=== PATIENT | female | born 1955 | race African-American/Black ===

== ENCOUNTER 2020-01-08 09:45 | Emergency (ER) | payer OTHER ==
[~2020-01-08] VITALS: Ht 170.2 cm; Wt 100.0 kg
[~2020-01-08 09:45] MED LIST: GABA-529 PO; HYDR-3971 PO; LEVO125T4 PO; METF-960 PO
[2020-01-08 09:51] VITALS: BP 134/95
[2020-01-08] MEDS ORDERED: ERYTHROMYCIN 0.5% 3.5 GM TUBE OPHTHALMIC OINTMENT OD ONE (10:30)
== END 2020-01-08 11:25 | disposition home or self-care (01) ==
LOC: EMS 09:47
DX: H00.011 Hordeolum externum right upper eyelid (principal); I10 Essential (primary) hypertension; E11.9 Type 2 diabetes mellitus without complications; E03.9 Hypothyroidism, unspecified; F17.210 Nicotine dependence, cigarettes, uncomplicated; Z79.84 Long term (current) use of oral hypoglycemic drugs
CPT/HCPCS: 99406

== ENCOUNTER 2020-08-27 07:53 | Emergency (ER) | payer OTHER ==
[~2020-08-27] VITALS: Ht 170.2 cm; Wt 102.3 kg
[~2020-08-27 07:53] MED LIST changes: +GABA-1216 PO; -GABA-529 PO
[2020-08-27 08:01] VITALS: BP 113/76
[2020-08-27] MEDS ORDERED: ALBUTEROL SULFATE HFA 90 MCG/PUFF 8 GM INHALER IH ONE (08:30)
[2020-08-27 09:24] LABS: COVID AG,FIA SOURCE NASOPHARYNGEAL
== END 2020-08-27 09:19 | disposition home or self-care (01) ==
LOC: EMS 07:56
DX: R05 Cough (principal); I10 Essential (primary) hypertension; E03.9 Hypothyroidism, unspecified; E11.9 Type 2 diabetes mellitus without complications; F17.210 Nicotine dependence, cigarettes, uncomplicated; Z20.828 Contact with and (suspected) exposure to other viral communicable diseases; Z79.84 Long term (current) use of oral hypoglycemic drugs; Z79.899 Other long term (current) drug therapy
CPT/HCPCS: 71045; 82962; 87426; 94640; 99284; 99406; C9803; U0003; J3535

== ENCOUNTER 2020-10-30 03:00 | Emergency (ER) | payer OTHER ==
[~2020-10-30] VITALS: Ht 172.7 cm; Wt 95.5 kg
[2020-10-30 05:47] VITALS: BP 142/76
== END 2020-10-30 06:05 | disposition home or self-care (01) ==
LOC: EMS 03:02
DX: T16.2XXA Foreign body in left ear, initial encounter (principal); I10 Essential (primary) hypertension; E11.9 Type 2 diabetes mellitus without complications; F17.210 Nicotine dependence, cigarettes, uncomplicated; Z79.899 Other long term (current) drug therapy; W22.8XXA Striking against or struck by other objects, initial encounter; Y93.89 Activity, other specified; Y92.89 Other specified places as the place of occurrence of the external cause; Y99.8 Other external cause status
CPT/HCPCS: 69200

== ENCOUNTER 2021-07-05 08:30 | Emergency (ER) | payer OTHER ==
[~2021-07-05] VITALS: Ht 170.2 cm; Wt 104.5 kg
[~2021-07-05 08:30] MED LIST changes: -HYDR-3971 PO; +HYDR-4072 PO
[2021-07-05 08:51] VITALS: BP 128/78
== END 2021-07-05 09:40 | disposition home or self-care (01) ==
LOC: EMS 08:30
DX: U07.1 COVID-19 (principal); E11.9 Type 2 diabetes mellitus without complications; I10 Essential (primary) hypertension; F17.210 Nicotine dependence, cigarettes, uncomplicated; Z79.84 Long term (current) use of oral hypoglycemic drugs
CPT/HCPCS: 82962; 99283; U0003

== ENCOUNTER 2021-12-23 08:11 | Emergency (ER) | payer OTHER ==
[~2021-12-23] VITALS: Ht 167.6 cm; Wt 100.0 kg
[~2021-12-23 08:11] MED LIST changes: +METF-1211 PO; -METF-960 PO
[2021-12-23] MEDS ORDERED: SODIUM CHLORIDE 0.9% 1,000 ML IV ONE (08:30)
[2021-12-23] MEDS ORDERED: MORPHINE SULFATE 2 MG/ML SYRINGE IVP ONE (08:30)
[2021-12-23 08:37] LABS: BASOPHILS % (AUTO) 0.8 % (0.0-2.0); EOSINOPHILS % (AUTO) 0.8 % (1.0-6.0); HEMATOCRIT 39.2 % (36-46); HEMOGLOBIN 13.3 g/dL (12.0-16.0); LYMPHOCYTES # (AUTO) 2.7 K/uL (1.0-4.8); LYMPHOCYTES % (AUTO) 29.7 % (22.0-44.0); MEAN CORPUSCULAR HEMOGLOBIN 29.7 pg (26.0-34.0); MEAN CORPUSCULAR VOLUME 87 fL (80-100); MONOCYTES # (AUTO) 0.7 K/uL (0.1-1.0); MONOCYTES % (AUTO) 8.1 % (2.0-9.0); NEUTROPHILS # (AUTO) 5.5 K/uL (1.8-7.7); NEUTROPHILS % (AUTO) 60.6 % (40.0-70.0); PLATELET COUNT (AUTO) 256 K/uL (150-450); RED BLOOD CELL COUNT(AUTO) 4.49 MIL/uL (4.00-5.20); RED CELL DISTRIBUTION WIDTH 14.6 % (11.5-14.5)
[2021-12-23 08:47] LABS: ANION GAP 6 mmol/L (8-16); CALCIUM, TOTAL 9.2 mg/dL (8.8-10.5); CARBON DIOXIDE 31 mmol/L (22-29); CHLORIDE 102 mmol/L (98-107); CREATININE 0.72 mg/dL (0.60-1.30); GLOMERULAR FILTR. RATE CALC > 60 mL/min (>60); GLUCOSE,RANDOM 126 mg/dL (70-110); POTASSIUM 3.3 mmol/L (3.5-5.1); SODIUM SERUM 139 mmol/L (136-145); UREA NITROGEN, BLOOD 12 mg/dL (7-18)
[2021-12-23 08:53] LABS: ALANINE AMINOTRANSFERASE 21 U/L (12-78); ALBUMIN 3.5 g/dL (3.4-5.0); ALKALINE PHOSPHATASE 95 U/L (46-116); ASPARTATE AMINOTRANSFERASE 16 U/L (15-37); BILIRUBIN,TOTAL 0.4 mg/dL (0.1-1.0); LIPASE 153 U/L (73-393); TOTAL PROTEIN, SERUM 7.7 g/dL (6.4-8.2)
[2021-12-23] MEDS ORDERED: SODIUM CHLORIDE 0.9% 100 ML ONE (08:57)
[2021-12-23] MEDS ORDERED: IOHEXOL 350 MG/ML 150 ML VIAL ONE (08:57)
[2021-12-23] MEDS ORDERED: PB/HYOSCY/ATR/SCOP/LIDO/MAALOX 55 ML BOTTLE PO ONE (10:30)
[2021-12-23] MEDS ORDERED: LANS30CA56 PO (10:54)
[2021-12-23 11:02] VITALS: BP 140/70
== END 2021-12-23 11:37 | disposition home or self-care (01) ==
LOC: EMS 08:15
DX: K21.9 Gastro-esophageal reflux disease without esophagitis (principal); R07.89 Other chest pain; I10 Essential (primary) hypertension; E11.9 Type 2 diabetes mellitus without complications; F17.210 Nicotine dependence, cigarettes, uncomplicated; Z79.899 Other long term (current) drug therapy
CPT/HCPCS: 36415; 71045; 71260; 74177; 80053; 81002; 82962; 83690; 84484; 85025; 93005; 96361; 96374; 99285; J2270; J7030; J7050; Q9967; 72193; 74160

== ENCOUNTER 2022-04-19 09:46 | Emergency (ER) | payer MEDICARE, OTHER ==
[~2022-04-19] VITALS: Ht 170.2 cm; Wt 100.0 kg
[~2022-04-19 09:46] MED LIST changes: +LANS30CA56 PO
[2022-04-19 12:14] VITALS: BP 141/79
[2022-04-19] MEDS ORDERED: LIDOCAINE 5% TRANSDERMAL PATCH TD ONE (12:15)
[2022-04-19] MEDS ORDERED: CYCLOBENZAPRINE HCL 10 MG TABLET PO ONE (12:15)
[2022-04-19] MEDS ORDERED: KETOROLAC TROMETHAMINE 60 MG/2 ML VIAL IM ONE (12:15)
== END 2022-04-19 12:44 | disposition home or self-care (01) ==
LOC: EMS 09:46
DX: M54.50 Low back pain, unspecified (principal); M54.32 Sciatica, left side; M17.0 Bilateral primary osteoarthritis of knee; F10.20 Alcohol dependence, uncomplicated; F17.210 Nicotine dependence, cigarettes, uncomplicated; I10 Essential (primary) hypertension; E11.9 Type 2 diabetes mellitus without complications
CPT/HCPCS: 99283; 96372; J1885

== ENCOUNTER 2023-03-12 07:24 | Emergency (ER) | payer MEDICARE, OTHER ==
[~2023-03-12] VITALS: Ht 170.2 cm; Wt 102.3 kg
[2023-03-12] MEDS ORDERED: HYDR25TA PO (07:33)
[2023-03-12 07:46] LABS: GLUCOMETER DEV NAME(LOC) ERT.5; GLUCOSE,POINT OF CARE 134 MG/DL (70-110)
[2023-03-12 08:44] LABS: BASOPHILS % (AUTO) 0.9 % (0.0-2.0); EOSINOPHILS % (AUTO) 1.4 % (1.0-6.0); HEMATOCRIT 40.3 % (36-46); HEMOGLOBIN 13.3 g/dL (12.0-16.0); LYMPHOCYTES # (AUTO) 2.9 K/uL (1.0-4.8); LYMPHOCYTES % (AUTO) 34.2 % (22.0-44.0); MEAN CORPUSCULAR HEMOGLOBIN 29.9 pg (26.0-34.0); MEAN CORPUSCULAR VOLUME 91 fL (80-100); MONOCYTES # (AUTO) 0.6 K/uL (0.1-1.0); MONOCYTES % (AUTO) 7.2 % (2.0-9.0); NEUTROPHILS # (AUTO) 4.8 K/uL (1.8-7.7); NEUTROPHILS % (AUTO) 56.3 % (40.0-70.0); PLATELET COUNT (AUTO) 260 K/uL (150-450); RED BLOOD CELL COUNT(AUTO) 4.44 MIL/uL (4.00-5.20); RED CELL DISTRIBUTION WIDTH 14.1 % (11.5-14.5)
[2023-03-12 08:56] LABS: ANION GAP 6 mmol/L (8-16); CALCIUM, TOTAL 9.2 mg/dL (8.8-10.5); CARBON DIOXIDE 30 mmol/L (22-29); CHLORIDE 104 mmol/L (98-107); CREATININE 0.69 mg/dL (0.60-1.30); GLOMERULAR FILTR. RATE CALC > 60 mL/min (>60); GLUCOSE,RANDOM 136 mg/dL (70-110); POTASSIUM 3.6 mmol/L (3.5-5.1); SODIUM SERUM 140 mmol/L (136-145)
[2023-03-12] MEDS ORDERED: METHOCARBAMOL 500 MG TABLET PO ONE (09:00)
[2023-03-12] MEDS ORDERED: KETOROLAC TROMETHAMINE 60 MG/2 ML VIAL IM ONE (09:00)
[2023-03-12 09:03] LABS: ALANINE AMINOTRANSFERASE 17 U/L (12-78); ALBUMIN 3.5 g/dL (3.4-5.0); ALKALINE PHOSPHATASE 85 U/L (46-116); ASPARTATE AMINOTRANSFERASE 14 U/L (15-37); BILIRUBIN,TOTAL 0.3 mg/dL (0.1-1.0); LIPASE 154 U/L (73-393); TOTAL PROTEIN, SERUM 7.4 g/dL (6.4-8.2)
[2023-03-12 11:17] LABS: APPEARANCE,URINE CLEAR (CLEAR); BILIRUBIN,URINE NEGATIVE (NEGATIVE); GLUCOSE, URINE (UA) NEGATIVE (NEGATIVE); KETONES,URINE NEGATIVE (NEGATIVE); LEUKOCYTE ESTERASE ,URINE NEGATIVE (NEGATIVE); NITRATE,URINE NEGATIVE (NEGATIVE); OCCULT BLOOD,URINE NEGATIVE (NEGATIVE); PROTEIN,URINE NEGATIVE (NEGATIVE); SPECIFIC GRAVITIY, URINE 1.015 (1.003-1.030); UROBILINOGEN,URINE <=1.0 mg/dL (<=1.0)
[2023-03-12 14:31] VITALS: BP 133/80
[2023-03-12] MEDS ORDERED: METH-659 PO (14:38)
[2023-03-12] MEDS ORDERED: IBUP-1492 PO (14:38)
== END 2023-03-12 14:51 | disposition home or self-care (01) ==
LOC: EMS 07:27
DX: K57.90 Diverticulosis of intestine, part unspecified, without perforation or abscess without bleeding (principal); G89.29 Other chronic pain; M54.50 Low back pain, unspecified; E11.9 Type 2 diabetes mellitus without complications; I10 Essential (primary) hypertension; F17.210 Nicotine dependence, cigarettes, uncomplicated; Z79.84 Long term (current) use of oral hypoglycemic drugs
CPT/HCPCS: 99285; 74176; 80053; 81003; 82962; 83690; 85025; 36415; 96372; J1885

== ENCOUNTER → 2023-08-24 | Outpatient (CLI) | payer MEDICARE, OTHER ==
[~2023-08-24] MED LIST changes: -GABA-1216 PO; +HYDR25TA PO; +IBUP-1492 PO; +LANS-78 PO; -LANS30CA56 PO; +METH-659 PO
== END | disposition home or self-care (01) ==
LOC: RADMN 08:35
PROVIDERS: ATTEND Nurse Practitioner
DX: S43.431A Superior glenoid labrum lesion of right shoulder, initial encounter (principal); R51.9 Headache, unspecified; X58.XXXA Exposure to other specified factors, initial encounter; Y93.89 Activity, other specified; Y92.89 Other specified places as the place of occurrence of the external cause; Y99.8 Other external cause status
CPT/HCPCS: 70551; 73721

== ENCOUNTER 2024-06-26 08:18 | Emergency (ER) | payer MEDICARE, OTHER ==
[~2024-06-26] VITALS: Ht 170.2 cm; Wt 97.7 kg
[2024-06-26 08:27] VITALS: TEMP 98.9
[2024-06-26] MEDS: KETOROLAC TROMETHAMINE 30 MG/ML VIAL IM ONE (09:53)
[2024-06-26] MEDS: METHOCARBAMOL 500 MG TABLET PO ONE (09:53)
[2024-06-26] MEDS: HYDROCODONE/ACETAMINOPHEN 5-325 MG TABLET PO ONE (09:53)
[2024-06-26] MEDS: LIDOCAINE 5% TRANSDERMAL PATCH TD ONE (09:54)
[2024-06-26] MEDS ORDERED: HYDR-4072 PO (11:23)
[2024-06-26 11:49] VITALS: BP 138/78; PULSE 72; RESP 18; O2SAT 99
== END 2024-06-26 11:57 | disposition home or self-care (01) ==
LOC: EMS 08:18
DX: G89.29 Other chronic pain (principal); M25.561 Pain in right knee; M25.562 Pain in left knee; E11.9 Type 2 diabetes mellitus without complications; I10 Essential (primary) hypertension; F17.210 Nicotine dependence, cigarettes, uncomplicated
CPT/HCPCS: 99284; 82948; 96372; J1885

== ENCOUNTER 2024-07-28 02:48 | Emergency (ER) | payer MEDICARE, OTHER ==
[~2024-07-28] VITALS: Ht 170.2 cm; Wt 12.3 kg
[~2024-07-28 02:48] MED LIST changes: -IBUP-1492 PO; -METH-659 PO
[2024-07-28 03:01] VITALS: TEMP 98.1
[2024-07-28 03:15] VITALS: BP 138/77; PULSE 80; RESP 18; O2SAT 100
[2024-07-28] MEDS ORDERED: SULF-261 PO (03:19)
[2024-07-28] MEDS ORDERED: CEPH-558 PO (03:19)
[2024-07-28] MEDS: HYDROCODONE/ACETAMINOPHEN 10-325 MG TABLET PO ONE (03:19)
[2024-07-28] MEDS: SULFAMETHOX/TRIMETH DS 800-160 MG/TABLET PO ONE (03:19)
[2024-07-28] MEDS: CEPHALEXIN MONOHYDRATE 500 MG CAPSULE PO ONE (03:19)
[2024-07-28] MEDS ORDERED: IBUP-1492 PO (03:19)
[2024-07-28 03:26] LABS: GLUCOMETER DEV NAME(LOC) ER.7; GLUCOSE,POINT OF CARE 135 MG/DL (70-110)
== END 2024-07-28 03:29 | disposition home or self-care (01) ==
LOC: EMS 02:48
DX: L03.113 Cellulitis of right upper limb (principal); E11.9 Type 2 diabetes mellitus without complications; I10 Essential (primary) hypertension; E03.9 Hypothyroidism, unspecified; Z90.89 Acquired absence of other organs; Z79.899 Other long term (current) drug therapy
CPT/HCPCS: 82962; 99284

== ENCOUNTER 2024-11-02 01:51 | Emergency (ER) | payer MEDICARE, OTHER ==
[~2024-11-02] VITALS: Ht 170.2 cm; Wt 103.0 kg
[~2024-11-02 01:51] MED LIST changes: +CEPH-558 PO; +IBUP-1492 PO; +SULF-261 PO
[2024-11-02 02:07] VITALS: TEMP 98.9
[2024-11-02 02:34] LABS: COVID AG,FIA SOURCE NASAL SWAB
[2024-11-02 02:36] LABS: EOSINOPHILS % (AUTO) 1.4 % (1.0-6.0); LYMPHOCYTES # (AUTO) 3.3 K/uL (1.0-4.8); LYMPHOCYTES % (AUTO) 29.8 % (22.0-44.0); MEAN CORPUSCULAR HEMOGLOBIN 30.8 pg (26.0-34.0); MEAN CORPUSCULAR HGB CONC 34.2 G/dL (31.0-37.0); MEAN CORPUSCULAR VOLUME 90 fL (80-100); MONOCYTES % (AUTO) 9.4 % (2.0-9.0); NEUTROPHILS # (AUTO) 6.4 K/uL (1.8-7.7); NEUTROPHILS % (AUTO) 58.4 % (40.0-70.0); PLATELET COUNT (AUTO) 257 K/uL (150-450); RED BLOOD CELL COUNT(AUTO) 4.23 MIL/uL (4.00-5.20); RED CELL DISTRIBUTION WIDTH 14.6 % (11.5-14.5); WHITE BLOOD COUNT (AUTO) 10.9 K/uL (4.5-11.0)
[2024-11-02 02:42] VITALS: BP 153/61; PULSE 84; O2SAT 100
[2024-11-02 02:44] LABS: ANION GAP 8 mmol/L (8-16); CALCIUM, TOTAL 9.1 mg/dL (8.8-10.5); CARBON DIOXIDE 30 mmol/L (22-29); CHLORIDE 99 mmol/L (98-107); GLOMERULAR FILTR. RATE CALC > 60 mL/min (>60); GLUCOSE,RANDOM 128 mg/dL (70-110); POTASSIUM 3.5 mmol/L (3.5-5.1); SODIUM SERUM 137 mmol/L (136-145); UREA NITROGEN, BLOOD 17 mg/dL (7-18)
[2024-11-02 02:45] LABS: INFLUENZA TYPE A NEGATIVE FOR TYPE A (NEGATIVE); INFLUENZA TYPE B NEGATIVE FOR TYPE B (NEGATIVE); SARS-COV2 (COVID) ANTIGEN,FIA Negative (Negative)
[2024-11-02] MEDS: KETOROLAC TROMETHAMINE 30 MG/ML VIAL IM ONE (03:52)
[2024-11-02] MEDS: DEXAMETHASONE 4 MG TABLET PO ONE (03:53)
[2024-11-02] MEDS: ACETAMINOPHEN 325 MG TABLET PO ONE (03:53)
[2024-11-02 04:27] VITALS: RESP 16
== END 2024-11-02 04:34 | disposition home or self-care (01) ==
LOC: EMS 01:51
DX: J02.9 Acute pharyngitis, unspecified (principal); E11.9 Type 2 diabetes mellitus without complications; I10 Essential (primary) hypertension; F17.210 Nicotine dependence, cigarettes, uncomplicated; E03.9 Hypothyroidism, unspecified; Z79.899 Other long term (current) drug therapy; Z90.89 Acquired absence of other organs; Z79.2 Long term (current) use of antibiotics; Z20.822 Contact with and (suspected) exposure to COVID-19
CPT/HCPCS: 99283; 87426; 80048; 85025; 87804; 36415; 96372; J1885; J8540

== ENCOUNTER 2024-11-30 08:15 | Emergency (ER) | payer MEDICARE, OTHER ==
[~2024-11-30] VITALS: Ht 162.6 cm; Wt 84.1 kg
[2024-11-30 08:17] VITALS: TEMP 98.4
[2024-11-30] MEDS: KETOROLAC TROMETHAMINE 60 MG/2 ML VIAL IM ONE (09:39)
[2024-11-30] MEDS: HYDROCODONE/ACETAMINOPHEN 5-325 MG TABLET PO ONE (09:39)
[2024-11-30 10:34] VITALS: BP 143/89; PULSE 63; RESP 18; O2SAT 94
[2024-11-30] MEDS ORDERED: HYDR-4062 PO (11:12)
[2024-11-30] MEDS ORDERED: DICL100G60 TP (11:12)
[2024-11-30] MEDS ORDERED: IBUP-1554 PO (11:12)
== END 2024-11-30 11:28 | disposition home or self-care (01) ==
LOC: EMS 08:28
DX: S39.012A Strain of muscle, fascia and tendon of lower back, initial encounter (principal); S70.02XA Contusion of left hip, initial encounter; E11.9 Type 2 diabetes mellitus without complications; I10 Essential (primary) hypertension; E03.9 Hypothyroidism, unspecified; F17.210 Nicotine dependence, cigarettes, uncomplicated; Z90.89 Acquired absence of other organs; Z79.899 Other long term (current) drug therapy; Z98.890 Other specified postprocedural states; W19.XXXA Unspecified fall, initial encounter; Y93.89 Activity, other specified; Y92.89 Other specified places as the place of occurrence of the external cause; Y99.8 Other external cause status
CPT/HCPCS: 99283; 82962; 73503; 96372; J1885

== ENCOUNTER 2025-08-29 09:37 | Emergency (ER) | payer OTHER ==
[~2025-08-29] VITALS: Ht 170.2 cm; Wt 110.0 kg
[~2025-08-29 09:37] MED LIST changes: -CEPH-558 PO; -IBUP-1492 PO; -SULF-261 PO
[2025-08-29 09:56] VITALS: TEMP 97.5
[2025-08-29] MEDS ORDERED: MAGN100T PO (10:05)
[2025-08-29] MEDS ORDERED: ATOR20TA PO (10:05)
[2025-08-29] MEDS ORDERED: CHOL500013 PO (10:05)
[2025-08-29] MEDS ORDERED: LORA10TA7 PO (10:05)
[2025-08-29] MEDS ORDERED: AMLO-258 PO (10:05)
[2025-08-29] MEDS ORDERED: BACL10TA PO (10:05)
[2025-08-29] MEDS ORDERED: METF-1211 PO (10:05)
[2025-08-29 10:20] LABS: GLUCOMETER DEV NAME(LOC) ERT.7; GLUCOSE,POINT OF CARE 113 MG/DL (70-110)
[2025-08-29 10:58] LABS: PLATELET COUNT (AUTO) 269 K/uL (150-450); RED BLOOD CELL COUNT(AUTO) 4.21 MIL/uL (4.00-5.20); RED CELL DISTRIBUTION WIDTH 14.6 % (11.5-14.5); WHITE BLOOD COUNT (AUTO) 8.1 K/uL (4.5-11.0)
[2025-08-29 11:06] LABS: CALCIUM, TOTAL 9.1 mg/dL (8.8-10.5); CREATININE 0.66 mg/dL (0.60-1.30); GLOMERULAR FILTR. RATE CALC > 60 mL/min (>60); GLUCOSE,RANDOM 112 mg/dL (70-110); SODIUM SERUM 142 mmol/L (136-145); UREA NITROGEN, BLOOD 10 mg/dL (7-18)
[2025-08-29 11:20] LABS: APPEARANCE,URINE HAZY (CLEAR); GLUCOSE, URINE (UA) NEGATIVE (NEGATIVE); LEUKOCYTE ESTERASE ,URINE NEGATIVE (NEGATIVE); NITRATE,URINE NEGATIVE (NEGATIVE); OCCULT BLOOD,URINE NEGATIVE (NEGATIVE); SPECIFIC GRAVITIY, URINE 1.020 (1.003-1.030)
[2025-08-29 12:00] VITALS: BP 161/81; PULSE 68; RESP 18; O2SAT 99
[2025-08-29] MEDS ORDERED: METH-812 PO (13:00)
== END 2025-08-29 13:15 | disposition home or self-care (01) ==
LOC: EMS 09:37
DX: M17.0 Bilateral primary osteoarthritis of knee (principal); S30.11XA Contusion of abdominal wall, initial encounter; E03.9 Hypothyroidism, unspecified; E11.9 Type 2 diabetes mellitus without complications; I10 Essential (primary) hypertension; F17.210 Nicotine dependence, cigarettes, uncomplicated; Z90.89 Acquired absence of other organs; Z96.659 Presence of unspecified artificial knee joint; Z79.899 Other long term (current) drug therapy; W19.XXXA Unspecified fall, initial encounter; Y93.89 Activity, other specified; Y92.89 Other specified places as the place of occurrence of the external cause; Y99.8 Other external cause status
CPT/HCPCS: 80048; 81003; 82962; 85025; 99283